=== PATIENT | female | born 2000 | race Caucasian/White ===

== ENCOUNTER → 2020-12-20 15:13 | Outpatient (REF) | payer OTHER, MEDICAID, SELFPAY ==
--- NOTE | 2020-12-20 | ECG_ITS ---
Test Reason : HX COVID Blood Pressure : / mmHG Vent. Rate : 076 BPM Atrial Rate : 076 BPM P-R Int : 128 ms QRS Dur : 090 ms QT Int : 394 ms P-R-T Axes : 024 032 041 degrees QTc Int : 443 ms Normal sinus rhythm with sinus arrhythmia Normal ECG When compared with ECG of 23-MAR-2018 14:51, No significant change was found Referred By: Deirdre Jimenes Electronically Signed By:MARLON GONZALES MD
== END ==
LOC: HO.CARD 15:13
PROVIDERS: PCP Pediatrics; Visit Provider Pediatrics
DX: Z86.16 Personal history of COVID-19 (principal)
CPT/HCPCS: 93005

== ENCOUNTER 2021-11-24 14:37 | Emergency (ER) | payer OTHER, MEDICAID, SELFPAY ==
--- NOTE | ~2021-11-24 | XR_ITS ---
EXAMINATION: XR CHEST CLINICAL INFORMATION: Chest pain and cough COMPARISON: Previous chest x-ray most recent March 2018 TECHNIQUE: Frontal view of the chest was obtained. FINDINGS: No significant abnormality is noted involving the heart, lungs, mediastinum, bony thorax or soft tissues. XR/XR chest 1V IMPRESSION: Unremarkable examination.
--- NOTE | 2021-11-24 14:46 | ECG_ITS ---
Test Reason : cp Blood Pressure : / mmHG Vent. Rate : 084 BPM Atrial Rate : 084 BPM P-R Int : 130 ms QRS Dur : 086 ms QT Int : 354 ms P-R-T Axes : 046 026 038 degrees QTc Int : 418 ms Normal sinus rhythm with sinus arrhythmia Normal ECG When compared with ECG of 20-DEC-2020 14:31, No significant change was found Referred By: Generic ED Physician Electronically Signed By:MARLON GONZALES MD
[2021-11-24 15:55] VITALS: BP 146/82; PULSE 76; RESP 20; TEMP 37.2; O2SAT 99; BMI 39.6
[2021-11-25 00:55] VITALS: BP 146/83; PULSE 86; RESP 16; TEMP 37.1; O2SAT 99
[2021-11-25 01:51] LABS: Basophils Percent Auto 0.3 % (0-2); Eosinophils Absolute Auto 0.3 X10*3/uL (0.0-0.4); Eosinophils Percent Auto 2.5 % (0-4); Hematocrit 41.6 % (37.0-47.0); Hemoglobin 14.1 g/dl (12.0-16.0); Imm Gran Abs Auto 0.03 X10*3/uL (0.00-0.03); Imm Gran Pct Auto 0.3 % (0.0-0.4); Lymphocytes Absolute Auto 2.9 X10*3/uL (1.2-4.9); Lymphocytes Percent Auto 25.3 % (20-40); MANUAL DIFF FLAG NO; Mean Corpuscular HGB Conc 33.9 g/dl (31.0-35.0); Mean Corpuscular Hemoglobin 27.4 pg (27.0-33.0); Mean Corpuscular Volume 80.9 fL (80.0-98.0); Mean Platelet Volume 8.8 fL (9.4-12.3); Monocytes Absolute Auto 0.9 X10*3/uL (0.1-1.2); Neutrophils Absolute Auto 7.3 x10*3/uL (2.0-8.3); Neutrophils Percent Auto 63.6 % (45-73); Platelet Count 365 X10*3/uL (160-400); Red Blood Count 5.14 X10*6/uL (4.20-5.50); Red Cell Distribution Width 12.7 % (11.0-16.0); White Blood Count 11.4 X10*3/uL (4.8-10.8)
[2021-11-25 02:06] LABS: Anion Gap 13 (12-20); Blood Urea Nitrogen 10 mg/dL (9-16); Calcium 9.6 mg/dL (8.4-10.2); Carbon Dioxide 25 mmol/L (22-29); Chloride 105 mmol/L (96-108); Estimated Glomerular Filt Rate > 60; Glucose Random 95 mg/dL (60-115); Sodium 139 mmol/L (135-145)
[2021-11-25 02:13] LABS: Troponin-I High Sensitivity < 3.5 ng/L (<3.5-17.0)
[2021-11-25 02:25] VITALS: BP 142/88; PULSE 105; RESP 16; TEMP 36.9; O2SAT 98
[2021-11-25 03:57] VITALS: BP 132/85; PULSE 84; RESP 16; TEMP 36.9; O2SAT 98
[2021-11-25 06:00] VITALS: BP 150/101; PULSE 96; RESP 16; TEMP 36.3; O2SAT 99
[2021-11-25] MEDS: Ketorolac Tromethamine 60 MG/2 ML VIAL IM (06:23)
--- NOTE | 2021-11-25 06:26 | ED.CHESTPAIN ---
HPI - Chest Pain General Chief Complaint: Chest Pain Stated Complaint: Chest pain/swollen lips Time Seen by Provider: 11/25/21 05:56 Source: patient Mode of arrival: ambulatory Limitations: no limitations History of Present Illness HPI narrative: 21-year-old female who presents emergency department for evaluation of rhinorrhea, sore throat, cough and chest pain. The patient states she has been sick for approximately 3-4 days. She states that she had a runny nose, sore throat and a nonproductive cough. She states that she was seen at an urgent care clinic and told that her lungs sounded bad. She was started on prednisone and albuterol but she did not take these medications. She states that her sore throat and cough have improved. She states yesterday morning just after midnight she woke up from sleep with chest pain. She points to her left anterior chest when asked to localize the pain. Describes the pain as a pressure pain which is worse with lying down flap improves with sitting up. She states the pain was 8/10. She states that over the last 3 days she has taken 6 Advil with only minimal relief of her symptoms. She denied fever, chills, shortness of breath, dyspnea on exertion, nausea, vomiting, diarrhea, myalgias or arthralgias. Related Data Allergies Allergy/AdvReac Type Severity Reaction Status Date / Time No Known Allergies Allergy Verified 11/24/21 15:57 Review of Systems Review of Systems: Yes all other systems are reviewed and are negative [facility] Past Medical History [facility] Narrative: Past medical history: None. Past surgical history: None. Social history: She denies tobacco, alcohol and drug use. Social History Social History Advance Directives: No Advance Directives Information Provided: Yes Physical Exam Vital Signs: Vital Signs: Last Vital Signs Temp 97.4 F 11/25/21 06:00 Pulse 96 11/25/21 06:00 Resp 16 11/25/21 06:00 BP 150/101 H 11/25/21 06:00 Pulse Ox 99 11/25/21 06:00 BMI result Body Mass Index 39.6 Const: General: cooperative and no acute distress Orientation/consciousness: oriented to person and oriented to place Limitations: no limitations HEENT: Head: Yes normal to inspection, Yes normocephalic and Yes atraumatic Ears: external ears normal General nose exam: Normal external nose present Face and sinus: Yes normal facial exam Mouth: Normal oral and palatal mucosa present Throat: Yes posterior oropharynx normal Eyes: General: appearance normal, both eyes and all related structures Pupils: Equal, round and reactive pupils present Neck: Neck: Yes normal visual inspection, Yes no lymphadenopathy, Yes trachea midline and Yes supple Chest: Chest palpation & inspection: normal inspection of the chest and tenderness sternum (Moderate) and costochondral junction (Bilateral, moderate) Resp: Effort & Inspection: normal respiratory effort and able to speak in complete sentences Auscultation: clear to auscultation bilaterally Cardio: Rate: regular rate Rhythm: regular rhythm Heart sounds: S1 normal heart sound present, S2 normal heart sound present and no murmurs GI: Inspection: Yes normal to inspection Palpation (GI): Soft to palpation, nontender and no guarding Auscultation: normal bowel sounds : General: Yes no CVA tenderness Back/Spine/Pelvis: Back: no CVA tenderness Skin: General skin exam: no rashes or lesions noted Neuro: General: oriented to person and oriented to place Cranial nerves: Yes CN's II-XII intact bilaterally and Yes Equal, round and reactive pupils present Cognition (Neuro): normal cognition Motor exam (neuro): 5/5 motor strength present throughout Extrem: General: Yes normal to inspection Psych: Appearance: grossly normal Speech and movement: Normal speech and movement present Affect: normal affect Attitude: cooperative Thought process: Normal thought process present Thought content: Normal thought content present Course Course Course Narrative: 21-year-old female who presents emergency department for evaluation of 3 days of upper respiratory symptoms including rhinorrhea, sore throat and cough and 1 day anterior chest pain which is worse with lying down flat. Patient's vital signs did reveal an elevated blood pressure of 146/82 otherwise were unremarkable. Examination did reveal tenderness palpation over her sternum and costochondral joints otherwise was unremarkable. Patient had a chest x-ray which was normal. Twelve EKG was unremarkable. Laboratory evaluation was normal. High sensitivity troponin I was undetectable. Patient's presentation is consistent with a viral URI and costochondritis, I do not think that she has pericarditis at this point. The patient was given Toradol 60 mg IM. She was advised to take Tylenol and ibuprofen for pain. She was given a work note. She was discharged home with printed and verbal instructions. MDM - Chest Pain Lab Data Result diagrams: 11/25/21 01:47 11/25/21 01:47 Labs: Lab Results 11/25/21 11/25/21 11/25/21 Range/Units 01:47 01:47 01:47 WBC 11.4 H (4.8-10.8) X10*3/uL RBC 5.14 (4.20-5.50) X10*6/uL Hgb 14.1 (12.0-16.0) g/dl Hct 41.6 (37.0-47.0) % MCV 80.9 (80.0-98.0) fL MCH 27.4 (27.0-33.0) pg MCHC 33.9 (31.0-35.0) g/dl RDW 12.7 (11.0-16.0) % Plt Count 365 (160-400) X10*3/uL MPV 8.8 L (9.4-12.3) fL Immature Gran % (Auto) 0.3 (0.0-0.4) % Neut % (Auto) 63.6 (45-73) % Lymph % (Auto) 25.3 (20-40) % [place] % (Auto) 8.0 (2-11) % Eos % (Auto) 2.5 (0-4) % Baso % (Auto) 0.3 (0-2) % Lymph # (Auto) 2.9 (1.2-4.9) X10*3/uL [place] # (Auto) 0.9 (0.1-1.2) X10*3/uL Eos # (Auto) 0.3 (0.0-0.4) X10*3/uL Baso # (Auto) 0.0 (0.0-0.2) X10*3/uL Abs Immat Gran (auto) 0.03 (0.00-0.03) X10*3/uL Absolute Neuts (auto) 7.3 (2.0-8.3) x10*3/uL Absolute Nucleated RBC 0.000 (0.0-0.012) X10*3/uL Nucleated RBC % (auto) 0.0 (0.0-0.2) /100WBC Sodium 139 (135-145) mmol/L Potassium 4.0 (3.3-5.1) mmol/L Chloride 105 (96-108) mmol/L Carbon Dioxide 25 (22-29) mmol/L Anion Gap 13 (12-20) BUN 10 (9-16) mg/dL Creatinine 0.75 (0.5-1.4) mg/dL Estim Creat Clear Calc 124.0 Estimated GFR > 60 Random Glucose 95 (60-115) mg/dL Calcium 9.6 (8.4-10.2) mg/dL Troponin I High Sens < 3.5 (<3.5-17.0) ng/L ABG Data Attestation: I personally reviewed and interpreted this ABG as follows: Interpretation: 1449: Normal sinus rhythm with a rate of 84, normal IN interval, normal QRS duration, normal QTC interval, no ST segment elevation, no ST segment depression, no IN depression, no T-wave abnormalities, no Q-waves, no PACs, no PVCs. Discharge Plan Discharge Clinical Impression: Viral URI, Acute costochondritis Patient Disposition: Home, Self-Care Instructions: Viral Syndrome (ED), Costochondritis (ED) Additional Instructions: Your laboratory evaluation was unremarkable. Your chest x-ray was normal. Your EKG was normal. Your symptoms are consistent with an upper respiratory viral infection and inflammation of your chest joints (costochondritis). You were treated with Toradol 60 mg IM. Take ibuprofen 200 mg pills, 3 pills every 6 hours as needed for pain. Take Tylenol (acetaminophen) 500 mg pills, 2 pills every 4 to 6 hours as needed for pain. Follow-up with your doctor in 2 days. Please return to the emergency department if your symptoms get worse or if you develop any symptoms that are concerning to you. Stand Alone Forms: Work/School Release Interventions: LWBS Worksheet Last Done: 11/25/21 01:12
== END 2021-11-25 06:56 | disposition home or self-care (01) ==
PROVIDERS: Emergency Provider Emergency Medicine Emergency Medical Services
DX: J06.9 Acute upper respiratory infection, unspecified (principal); M94.0 Chondrocostal junction syndrome [Tietze]
CPT/HCPCS: 36415; 71045; 80048; 84484; 85025; 93005; 96372; 99284; J1885

== ENCOUNTER 2022-08-04 12:14 | Emergency (ER) | payer MEDICAID, SELFPAY ==
--- NOTE | ~2022-08-04 | US_ITS ---
EXAMINATION: US ABDOMEN COMPLETE CLINICAL INFORMATION: Epigastric pain and nausea. COMPARISON: None TECHNIQUE: Real-time imaging of the abdominal viscera. FINDINGS: PANCREAS: Not well visualized due to bowel gas ABDOMINAL AORTA: The proximal, mid, and distal segments are normal in caliber. INFERIOR VENA CAVA: Visualized portions are normal. LIVER: Normal. The liver is normal in size. The liver contour is normal. Parenchymal echogenicity is normal. No focal hepatic lesion. There is no intrahepatic biliary duct dilatation seen. GALLBLADDER: Gallbladder is normal in size. The gallbladder wall appears thickened and echogenic. Gallbladder wall thickness measures 5 to 7 mm. No gallstones are seen. No pericholecystic fluid. COMMON BILE DUCT: Normal in caliber measuring 0.3 cm in diameter. RIGHT KIDNEY: Normal. No hydronephrosis. No renal calculi or focal parenchymal lesions. The kidney measures 9 cm in maximum dimension. LEFT KIDNEY: Normal. No hydronephrosis. No renal calculi or focal parenchymal lesions. The kidney measures 9 cm in maximum dimension. SPLEEN: Normal. The spleen measures 10 cm in maximum dimension. FREE FLUID: None. US/US abdomen complete IMPRESSION: Thickened echogenic gallbladder wall. The gallbladder is normal in size and no gallstones are seen. Appearance is questionable for acalculus cholecystitis. Follow-up HIDA scan should be considered if clinically indicated. Limited visualization of the pancreas.
[2022-08-04 12:34] VITALS: BP 136/84; PULSE 74; RESP 18; TEMP 36.7; O2SAT 99; BMI 38.7
--- NOTE | 2022-08-04 12:35 | ED.ABDPAIN ---
HPI - Abdominal Pain General Chief Complaint: Abdominal Pain Stated Complaint: Abdominal Pain x 3 Days Source: patient Mode of arrival: ambulatory Limitations: no limitations History of Present Illness HPI narrative: 21yoF c No Sig PMHx presenting to the ED c c/o of epigastric abd pain c associated nausea. Abdominal pain worsens after she eats. Denies any other symptoms complaints or concerns at this time. Denies any fevers, chills, sore throat, cough, radiation of the abdominal pain, flank pain, back pain, dysuria, hematuria, diarrhea constipation, rashes, recent travel or sick contacts or any other symptoms complaints or concerns at this time. MD elicited complaint: abdominal pain Onset (ago): day(s) (3) Pain Consistency: constant Location: epigastric Severity: moderate Quality: aching and sharp Radiation: none Migration to: no migration Exacerbating factors: eating Relieving factors: nothing Associated symptoms: nausea and diarrhea Related Data Allergies Allergy/AdvReac Type Severity Reaction Status Date / Time No Known Allergies Allergy Verified 11/24/21 15:57 Review of Systems Review of Systems Constitutional : No Fever, No Chills, No Night Sweats, No Fatigue, No Malaise Cardiovascular : No Chest Pain, No SOB Respiratory : No Cough, No Sputum, No Wheezing, No Dyspnea Gastrointestinal : + Nausea, No Vomiting, + Diarrhea, + abdominal Pain, No Hematochezia, No Melena Genitourinary : No irregular bleeding, No Dysuria, No Urinary Frequency, No Hematuria,No Urinary Incontinence, No Urgency, No Flank Pain Musculoskeletal : No joint pain, No Myalgias, No Joint Swelling Skin : No Skin Lesions, No rash Neuro : No Weakness, No Numbness, No Paresthesias, No Loss of Consciousness, No Dizziness, No Headache Heme/Lymph: No Lymphadenopathy Endocrine : No Temperature Intolerance Yes all other systems are reviewed and are negative PMFSH Past Medical History Attestation statement: The following information was validated with the patient. Source: old records reviewed and nursing notes reviewed Social History Social History Advance Directives: No Physical Exam ED Vital Signs: BMI result Body Mass Index 38.7 Vital signs have been reviewed and all within normal limits Appearance: Alert. Oriented X3. No acute distress. Head: Normal external exam. Normocephalic. Eyes: PERRLA. EOMI. Conjunctiva and sclera normal. Eyelids normal. ENT: Pharynx normal. Uvula midline. Moist mucous membranes. No trismus noted. No drooling noted. No muffled voice noted. Neck: Normal inspection. Neck supple. FROM. No adenopathy. No meningeal signs. CVS: Normal heart rate and rhythm. Heart sound normal. No murmurs noted. Pulses normal throughout. Respiratory: No respiratory distress. Painless inspiration. Breath sounds normal. No wheezes/rales/rhonchi noted. Chest nontender. No accessory muscle usage noted or decreased air movement noted. Abdomen: Soft and mild tenderness palpation to the epigastric area Nondistended. No guarding. No rigidity. Bowel sounds normal in all 4 quadrants. No distention noted. No organomegaly noted. No visible injury noted. No rebound tenderness. Negative Rovsing sign. Negative obturator's sign. Negative psoas sign. Negative Garcia sign. Back: No CVA tenderness. Full range of motion noted. Skin: Skin warm and dry. Normal skin color. Normal skin turgor. No rashes/lesions/lacerations noted. Extremities: Extremities exhibit normal range of motion. Extremities nontender. Neuro: Oriented X 3. No motor deficit. No sensory deficit. Reflexes normal. Normal steady gait. CN's II-XII intact bilaterally? Course Course Course Narrative: 12:36pm - 21yoF c No Sig PMHx presenting to the ED c c/o of epigastric abd pain c associated nausea. Abdominal pain worsens after she eats. Denies any other symptoms complaints or concerns at this time. Denies any fevers, chills, sore throat, cough, radiation of the abdominal pain, flank pain, back pain, dysuria, hematuria, diarrhea constipation, rashes, recent travel or sick contacts or any other symptoms complaints or concerns at this time. Vital signs are stable within normal limits. On exam patient is TTP of epigastric abdominal area. No CVA tenderness is noted. Plan: Labs, UA, test, abdominal ultrasound. Patient is stable she will be sent to the waiting room for further evaluation treatment the main ER. Reevaluation(s) Reevaluation #1: Labs obtained and all labs were within normal limits. UA within normal limits no evidence of UTI. Patient was negative for . Ultrasound of abdomen revealed IMPRESSION: Thickened echogenic gallbladder wall. The gallbladder is normal in size and no gallstones are seen. Appearance is questionable for acalculus cholecystitis. Follow-up HIDA scan should be considered if clinically indicated. Limited visualization of the pancreas. Although patient eloped. Medical Decision Making Lab Data MDM Lab Attestation statement: I reviewed the patient's lab results. Result Diagrams: 08/04/22 14:08/04/22 14: Labs: Lab Results 08/04/22 08/04/22 08/04/22 Range/Units 14:22 14:22 14:22 WBC 6.4 (4.8-10.8) X10*3/uL RBC 5.02 (4.20-5.50) X10*6/uL Hgb 13.8 (12.0-16.0) g/dl Hct 41.0 (37.0-47.0) % MCV 81.7 (80.0-98.0) fL MCH 27.5 (27.0-33.0) pg MCHC 33.7 (31.0-35.0) g/dl RDW 12.9 (11.0-16.0) % Plt Count 357 (160-400) X10*3/uL MPV 9.2 L (9.4-12.3) fL Immature Gran % (Auto) 0.2 (0.0-0.4) % Neut % (Auto) 64.8 (45-73) % Lymph % (Auto) 22.2 (20-40) % [place] % (Auto) 10.3 (2-11) % Eos % (Auto) 2.3 (0-4) % Baso % (Auto) 0.2 (0-2) % Lymph # (Auto) 1.4 (1.2-4.9) X10*3/uL [place] # (Auto) 0.7 (0.1-1.2) X10*3/uL Eos # (Auto) 0.2 (0.0-0.4) X10*3/uL Baso # (Auto) 0.0 (0.0-0.2) X10*3/uL Abs Immat Gran (auto) 0.01 (0.00-0.03) X10*3/uL Absolute Neuts (auto) 4.2 (2.0-8.3) x10*3/uL Absolute Nucleated RBC 0.000 (0.0-0.012) X10*3/uL Nucleated RBC % (auto) 0.0 (0.0-0.2) /100WBC PT 14.0 H (10.0-13.1) SEC INR 1.2 H (0.9-1.1) Sodium 138 (135-145) mmol/L Potassium 4.4 (3.3-5.1) mmol/L Chloride 106 (96-108) mmol/L Carbon Dioxide 26 (22-29) mmol/L Anion Gap 10 L (12-20) BUN 7 L (9-16) mg/dL Creatinine 0.78 (0.5-1.4) mg/dL Estim Creat Clear Calc 117.6 Estimated GFR > 60 Random Glucose 91 (60-115) mg/dL Calcium 9.4 (8.4-10.2) mg/dL Magnesium 1.9 (1.6-2.6) mg/dL Total Bilirubin 0.6 (0.0-1.0) mg/dL AST 12 (5-31) U/L ALT 11 (0-31) U/L Alkaline Phosphatase 75 (39-117) U/L Lactate Dehydrogenase 161 (122-220) U/L Total Protein 7.0 (6.5-8.0) g/dL Albumin 4.3 (3.5-5.0) g/dL Lipase 13 (8-78) U/L Beta HCG, Quant < 2 mIU/mL Urine Color Urine Appearance Urine pH (5.0-9.0) Ur Specific [place] (1.005-1.025) Urine Protein (Neg-Trace) mg/dL Urine Glucose (UA) (Negative) mg/dL Urine Ketones (Negative) mg/dL Urine Blood (Negative) Urine Nitrite (Negative) Ur Leukocyte Esterase (Negative) 08/04/22 Range/Units 14:25 WBC (4.8-10.8) X10*3/uL RBC (4.20-5.50) X10*6/uL Hgb (12.0-16.0) g/dl Hct (37.0-47.0) % MCV (80.0-98.0) fL MCH (27.0-33.0) pg MCHC (31.0-35.0) g/dl RDW (11.0-16.0) % Plt Count (160-400) X10*3/uL MPV (9.4-12.3) fL Immature Gran % (Auto) (0.0-0.4) % Neut % (Auto) (45-73) % Lymph % (Auto) (20-40) % [place] % (Auto) (2-11) % Eos % (Auto) (0-4) % Baso % (Auto) (0-2) % Lymph # (Auto) (1.2-4.9) X10*3/uL [place] # (Auto) (0.1-1.2) X10*3/uL Eos # (Auto) (0.0-0.4) X10*3/uL Baso # (Auto) (0.0-0.2) X10*3/uL Abs Immat Gran (auto) (0.00-0.03) X10*3/uL Absolute Neuts (auto) (2.0-8.3) x10*3/uL Absolute Nucleated RBC (0.0-0.012) X10*3/uL Nucleated RBC % (auto) (0.0-0.2) /100WBC PT (10.0-13.1) SEC INR (0.9-1.1) Sodium (135-145) mmol/L Potassium (3.3-5.1) mmol/L Chloride (96-108) mmol/L Carbon Dioxide (22-29) mmol/L Anion Gap (12-20) BUN (9-16) mg/dL Creatinine (0.5-1.4) mg/dL Estim Creat Clear Calc Estimated GFR Random Glucose (60-115) mg/dL Calcium (8.4-10.2) mg/dL Magnesium (1.6-2.6) mg/dL Total Bilirubin (0.0-1.0) mg/dL AST (5-31) U/L ALT (0-31) U/L Alkaline Phosphatase (39-117) U/L Lactate Dehydrogenase (122-220) U/L Total Protein (6.5-8.0) g/dL Albumin (3.5-5.0) g/dL Lipase (8-78) U/L Beta HCG, Quant mIU/mL Urine Color Yellow Urine Appearance Clear Urine pH 5.5 (5.0-9.0) Ur Specific [place] 1.010 (1.005-1.025) Urine Protein Negative (Neg-Trace) mg/dL Urine Glucose (UA) Negative (Negative) mg/dL Urine Ketones Negative (Negative) mg/dL Urine Blood Negative (Negative) Urine Nitrite Negative (Negative) Ur Leukocyte Esterase Negative (Negative) Discharge Plan Discharge Clinical Impression: Abdominal pain Patient Disposition: [place] Discharge Date/Time: 08/04/22 21:34
--- OUTSIDE RECORDS SUMMARY | 2022-08-04 14:18 | XMS_ITS | Continuity of Care Document ---
:1999 Author Organization [facility] Address [address] [place] [id number]- Care Team Providers Name Role Phone Yudy LEZAMA, Deirdre Isaac Primary Care Physician Encounter [facility] ACCT R [id number] Date(s): 03/09/22 - 04/08/22 [facility] [place] [employer] [address] [id number] Attending Physician: Rashawn Yuen Admitting Physician: Rashawn Yuen Referring Physician: Rashawn Yuen Allergies, Adverse Reactions, Alerts No Known Medication Allergies Social History Social History Type Response Smoking Status Never smoker entered on: 05/28/15 Sex
--- OUTSIDE RECORDS SUMMARY | 2022-08-04 14:18 | XMS_ITS | Continuity of Care Document ---
:1999 Author Organization [facility] Address [address] [place] [id number]- Care Team Providers Name Role Phone Yudy LEZAMA, Deirdre Isaac Primary Care Physician Encounter [facility] Date(s): 10/07/21 - 11/06/21 [facility] [employer] [address] [id number] Allergies, Adverse Reactions, Alerts No Known Medication Allergies Social History Social History Type Response Smoking Status Never smoker entered on: 05/28/15 Sex
--- OUTSIDE RECORDS SUMMARY | 2022-08-04 14:18 | XMS_ITS | Continuity of Care Document ---
:1999 Author Organization [facility] [employer] Address [address] [place] [id number]- Care Team Providers Name Role Phone Yudy LEZAMA, Deirdre Isaac Primary Care Physician Encounter [facility] Date(s): 10/07/21 - 04/08/22 [facility] [employer] [address] [id number] Attending Physician: Not on Staff, Attending MD Referring Physician: Samia Martin CNM Allergies, Adverse Reactions, Alerts No Known Medication Allergies Social History Social History Type Response Smoking Status Never smoker entered on: 05/28/15 Sex
--- OUTSIDE RECORDS SUMMARY | 2022-08-04 14:19 | XMS_ITS | Continuity of Care Document ---
:1999 Author Organization [facility] Address [address] [place] [phone] Care Team Providers Name Role Phone Yudy LEZAMA, Deirdre Isaac Primary Care Physician Encounter [facility] Date(s): 09/10/21 - 10/10/21 [facility] [address] [place] [address] Allergies, Adverse Reactions, Alerts No Known Medication Allergies Social History Social History Type Response Smoking Status Never smoker entered on: 05/28/15 Sex
--- OUTSIDE RECORDS SUMMARY | 2022-08-04 14:19 | XMS_ITS | Continuity of Care Document ---
:1999 Author Organization [facility] Address [address] [place] [id number]- Care Team Providers Name Role Phone Yudy LEZAMA, Deirdre Isaac Primary Care Physician Encounter [facility] Date(s): 09/10/21 - 10/10/21 [facility] [address] [place] [id number] Allergies, Adverse Reactions, Alerts No Known Medication Allergies Social History Social History Type Response Smoking Status Never smoker entered on: 05/28/15 Sex
--- OUTSIDE RECORDS SUMMARY | 2022-08-04 14:19 | XMS_ITS | Continuity of Care Document ---
:[address] [facility] Address [address] [place] [address]- Care Team Providers Name Role Phone Yudy LEZAMA, Deirdre Isaac Primary Care Physician Encounter [facility] Date(s): 08/31/21 - 09/30/21 [facility] [address] [place], [place] [address] Allergies, Adverse Reactions, Alerts No Known Medication Allergies Social History Social History Type Response Smoking Status Never smoker entered on: 05/28/15 Sex
--- OUTSIDE RECORDS SUMMARY | 2022-08-04 14:19 | XMS_ITS | Continuity of Care Document ---
:1999 Author Organization [facility] Address Unavailable , Care Team Providers Name Role Phone Yudy LEZAMA, Deirdre Isaac Primary Care Physician Encounter [facility] Date(s): 11/27/21 - 12/27/21 [facility] Allergies, Adverse Reactions, Alerts No Known Medication Allergies Social History Social History Type Response Smoking Status Never smoker entered on: 05/28/15 Sex
--- OUTSIDE RECORDS SUMMARY | 2022-08-04 14:19 | XMS_ITS | Continuity of Care Document ---
:1999 Author Organization [facility] Address Unavailable , Care Team Providers Name Role Phone Yudy LEZAMA, Deirdre Isaac Primary Care Physician Encounter [facility] Date(s): 11/25/21 - 12/25/21 [facility] Allergies, Adverse Reactions, Alerts No Known Medication Allergies Social History Social History Type Response Smoking Status Never smoker entered on: 05/28/15 Sex
[2022-08-04 14:33] LABS: MANUAL DIFF FLAG NO
[2022-08-04 14:37] LABS: Basophils Percent Auto 0.2 % (0-2); Eosinophils Absolute Auto 0.2 X10*3/uL (0.0-0.4); Eosinophils Percent Auto 2.3 % (0-4); Hemoglobin 13.8 g/dl (12.0-16.0); Imm Gran Abs Auto 0.01 X10*3/uL (0.00-0.03); Imm Gran Pct Auto 0.2 % (0.0-0.4); Lymphocytes Absolute Auto 1.4 X10*3/uL (1.2-4.9); Lymphocytes Percent Auto 22.2 % (20-40); Mean Corpuscular HGB Conc 33.7 g/dl (31.0-35.0); Mean Corpuscular Hemoglobin 27.5 pg (27.0-33.0); Mean Corpuscular Volume 81.7 fL (80.0-98.0); Mean Platelet Volume 9.2 fL (9.4-12.3); Monocytes Absolute Auto 0.7 X10*3/uL (0.1-1.2); Monocytes Percent Auto 10.3 % (2-11); Neutrophils Absolute Auto 4.2 x10*3/uL (2.0-8.3); Neutrophils Percent Auto 64.8 % (45-73); Platelet Count 357 X10*3/uL (160-400); Red Blood Count 5.02 X10*6/uL (4.20-5.50); Red Cell Distribution Width 12.9 % (11.0-16.0); White Blood Count 6.4 X10*3/uL (4.8-10.8)
[2022-08-04 14:41] LABS: Appearance Urine Clear; Color Urine Yellow; Glucose Urine UA Negative (Negative); Leukocyte Esterase Urine Negative (Negative); Nitrite Urine Negative (Negative); PH 5.5 (5.0-9.0); Urine Blood Negative (Negative); Urine Ketones Negative (Negative); Urine Protein Negative (Neg-Trace)
[2022-08-04 14:57] LABS: INTERNATIONAL NORM RATIO 1.2 (0.9-1.1)
[2022-08-04 15:01] LABS: Alanine Aminotransferase 11 U/L (0-31); Albumin Level 4.3 g/dL (3.5-5.0); Alkaline Phosphatase 75 U/L (39-117); Anion Gap 10 (12-20); Aspartate Amino Transferase 12 U/L (5-31); Bilirubin Total 0.6 mg/dL (0.0-1.0); Blood Urea Nitrogen 7 mg/dL (9-16); Calcium 9.4 mg/dL (8.4-10.2); Carbon Dioxide 26 mmol/L (22-29); Chloride 106 mmol/L (96-108); Glucose Random 91 mg/dL (60-115); HCG Quantitative < 2 mIU/mL; Lactate Dehydrogenase 161 U/L (122-220); Lipase 13 U/L (8-78); Magnesium 1.9 mg/dL (1.6-2.6); Potassium 4.4 mmol/L (3.3-5.1); Sodium 138 mmol/L (135-145)
[2022-08-04 15:59] LABS: Creatinine Clr Calc Pharmacy 117.6; Estimated Glomerular Filt Rate > 60
== END 2022-08-04 21:34 | disposition left against medical advice (07) ==
PROVIDERS: Physician Assistant Medical; Emergency Provider Emergency Medicine
DX: R10.13 Epigastric pain (principal); R11.2 Nausea with vomiting, unspecified; R19.7 Diarrhea, unspecified; Z79.899 Other long term (current) drug therapy
CPT/HCPCS: 36415; 76700; 80053; 81003; 83615; 83690; 83735; 84702; 85025; 85610; 99282; 99284

== ENCOUNTER 2023-11-23 19:16 | Emergency (ER) | payer BC, SELFPAY ==
[2023-11-23 19:40] VITALS: BP 119/81; PULSE 110; RESP 18; TEMP 37.6; O2SAT 100; BMI 36.8
--- NOTE | 2023-11-23 19:41 | ED.NAVMDI ---
HPI - Nausea/Vomiting/Diarrhea General Chief complaint: General Medical Stated complaint: Flu like Symptoms/Dizziness Time Seen by Provider: 11/23/23 19:44 Source: patient Mode of arrival: ambulatory Limitations: no limitations History of Present Illness HPI Narrative: 23 year old female presenting today for evaluation of all over body aches, chills, and general malaise since yesterday. Sick contact includes sister who was diagnosed with flu yesterday. Denies sore throat, fevers, no cough. Denies vomiting, diarrhea. Reports occasional diffuse abdominal pain and shortness of breath. MD elicited complaint: abdominal pain Onset (ago): hour(s) (24 hrs) Associated nausea: No Associated abdominal pain: No Location of pain: none Pain scale (0-10): 8 Quality: aching Exacerbating factors: movement Relieving factors: rest Related Data Allergies Allergy/AdvReac Type Severity Reaction Status Date / Time No Known Allergies Allergy Verified 11/24/21 15:57 Review of Systems Review of Systems: Yes all other systems are reviewed and are negative Gastrointestinal: Gastrointestinal: Denies nausea PMFSH Social History Social History Smoked in Last 30 Days: No Use of substances other than those prescribed or required for medical reasons: No Patient : No Physical Exam Vital Signs: Vital Signs: Last Vital Signs Temp 99.7 F 11/23/23 19:40 Pulse 110 H 11/23/23 19:40 Resp 18 11/23/23 19:40 BP 119/81 11/23/23 19:40 Pulse Ox 100 11/23/23 19:40 O2 Del Method Room Air 11/23/23 19:40 BMI result Body Mass Index 36.8 Appearance: Alert. Oriented X3. No acute distress. ENT: Pharynx normal. No tonsillar swelling or exudate. No erythema of the oropharynx, Neck: Normal inspection. Neck supple. No lymphadenopaathy. CVS: Normal heart rate and rhythm. Pulses normal. Respiratory: No respiratory distress. Breath sounds normal. Abdomen: Soft and nontender. Skin: Skin warm and dry. Normal skin color. Normal skin turgor. No rashes. Neuro/psych: Oriented X 3. Course Course Course Narrative: Gladys is a 23 year old female presenting today for evaluation of all over body aches, chills, and general malaise since yesterday. Sick contact includes sister who was diagnosed with flu yesterday. Denies sore throat, fevers, no cough. Medications Administered Discontinued Medications Generic Name Dose Route Start Last Admin Trade Name Conrad PRN Reason Stop Dose Admin Ibuprofen 600 mg 11/23/23 19:45 11/23/23 19:47 Ibuprofen 600 Mg Tablet PO 11/23/23 19:46 600 mg ONCE ONE Administration Medical Decision Making Medical Decision Making MDM Narrative: 23 year old female presenting today for evaluation of body aches and chills since yesterday. Has sick contact of sister who was diagnosed with flu yesterday. Vital signs are stable on examination. Onset of symptoms < 48 hours ago, discussed potential tamiflu use, patient declines. Recommended use of OTC theraflu, ibuprofen, and acetaminophen. Comfortable to discharge home. Patient is agreeable with plan and questions/concerns were addressed. Differential Diagnosis Differential Diagnoses: The differential diagnosis associated with the presentation includes flu, COVID, RSV, upper respiratory infection, pneumonia, bronchitis External Record Review External record reviewed: Outpatient record, Prior outpatient labs and Prior outpatient radiology Tests considered The following testing was considered but not selected: cxr considered, viral testing considered Prescription Management I considered prescription management with: Antiviral Critical Care Time Critical Care Time Critical Care Time: No Discharge Plan Discharge Clinical Impression: Influenza A Patient Disposition: Home, Self-Care Instructions: Influenza (DC) Additional Instructions: Your symptoms are due to influenza Rest. Drink plenty of fluids. Do not go out in public while you are not feeling. Take over the counter cold/flu medications as needed for your symptoms. Take Tylenol and/or Motrin as needed for fevers and body aches. Follow up with your doctor as needed If you shortness of breath worsens, if you develop difficulty breathing or any other concerning symptom come back to the ER for further evaluation. Stand Alone Forms: Work/School Release
[2023-11-23] MEDS: Ibuprofen 600 MG TABLET PO (19:47)
[2023-11-23 19:52] VITALS: BP 119/81; PULSE 110; RESP 18; TEMP 37.6; O2SAT 100
== END 2023-11-23 20:30 | disposition home or self-care (01) ==
LOC: HO.ED 21:05
PROVIDERS: Emergency Provider Emergency Medicine Emergency Medical Services
DX: J10.1 Influenza due to other identified influenza virus with other respiratory manifestations (principal)
CPT/HCPCS: 99283

== ENCOUNTER → 2024-12-22 14:52 | Outpatient (BNVA) | payer MEDICARE, SELFPAY | DX: E66.01 Morbid (severe) obesity due to excess calories (principal); D57.3 Sickle-cell trait; F41.9 Anxiety disorder, unspecified; Z68.41 Body mass index [BMI] 40.0-44.9, adult | CPT/HCPCS: 96127; 99202 ==

== ENCOUNTER 2025-02-07 13:57 | Outpatient (REF) | payer MEDICARE, SELFPAY ==
[2025-02-07 14:10] LABS: MANUAL DIFF FLAG NO
[2025-02-07 14:52] LABS: Basophils Percent Auto 0.3 % (0-2); Eosinophils Absolute Auto 0.1 X10*3/uL (0.0-0.4); Eosinophils Percent Auto 1.4 % (0-4); Hematocrit 39.8 % (37.0-47.0); Hemoglobin 13.8 g/dl (12.0-16.0); Imm Gran Abs Auto 0.02 X10*3/uL (0.00-0.03); Imm Gran Pct Auto 0.2 % (0.0-0.4); Lymphocytes Absolute Auto 1.8 X10*3/uL (1.2-4.9); Lymphocytes Percent Auto 20.3 % (20-40); Mean Corpuscular HGB Conc 34.7 g/dl (31.0-35.0); Mean Corpuscular Hemoglobin 27.8 pg (27.0-33.0); Mean Corpuscular Volume 80.1 fL (80.0-98.0); Mean Platelet Volume 9.3 fL (9.4-12.3); Monocytes Absolute Auto 0.8 X10*3/uL (0.1-1.2); Neutrophils Percent Auto 68.8 % (45-73); Platelet Count 423 X10*3/uL (160-400); Red Blood Count 4.97 X10*6/uL (4.20-5.50); Red Cell Distribution Width 13.1 % (11.0-16.0); White Blood Count 8.8 X10*3/uL (4.8-10.8)
[2025-02-07 15:31] LABS: Alanine Aminotransferase 21 U/L (0-31); Albumin Level 4.7 g/dL (3.5-5.0); Alkaline Phosphatase 76 U/L (39-117); Anion Gap 11 (12-20); Aspartate Amino Transferase 20 U/L (5-31); Bilirubin Total 0.6 mg/dL (0.0-1.0); Blood Urea Nitrogen 9 mg/dL (9-16); Carbon Dioxide 26 mmol/L (22-29); Chloride 108 mmol/L (96-108); Cholesterol 208 mg/dL (<200); Estimated Glomerular Filt Rate > 60; Glucose Random 89 mg/dL (60-115); HDL Cholesterol 55 mg/dL (>40); LDL Cholesterol Calculated 128 mg/dL (<100); Potassium 3.8 mmol/L (3.3-5.1); Sodium 141 mmol/L (135-145); Total Protein 7.6 g/dL (6.5-8.0); Triglycerides 127 mg/dL (<150)
[2025-02-07 15:49] LABS: Free T4 (Free Thyroxine) 1.13 ng/dL (0.71-1.85); TSH reflex Free T4 2.95 uIU/mL (0.32-4.0); Vitamin D 25-OH Total 20.7 ng/mL (>30)
[2025-02-07 16:01] LABS: Folate > 20.0 ng/mL (> or = 4.0); Vitamin B12 314 pg/mL (200-900)
[2025-02-09 11:04] LABS: Anti Nuclear Antibody Screen NEGATIVE (NEGATIVE)
== END 2025-02-07 13:58 | disposition home or self-care (01) ==
LOC: HO.LAB 13:57
DX: Z00.00 Encounter for general adult medical examination without abnormal findings (principal); Z13.220 Encounter for screening for lipoid disorders; F41.9 Anxiety disorder, unspecified
CPT/HCPCS: 36415; 80053; 80061; 82306; 82607; 82746; 84439; 84443; 85025; 86038

== ENCOUNTER 2025-03-26 14:59 | Outpatient (AMB) | payer MEDICARE, SELFPAY ==
--- OUTSIDE RECORDS SUMMARY | 2025-03-26 15:03 | XMS_ITS | Encounter Summary ---
Author Organization [facility] Address [address] [place] [id number] Phone Care Team Providers Care Cupola Operator Name Role Phone Deirdre Jimenes MD Primary Care Provider [phone] Encounter Details Date Type Department Care Team (Late st Contact Info) Description 10/14/2016 Documentation [facility] Family Medicine [address] [place] [address] Family Medicine, Physician [address], [place] [phone] Social History Tobacco Use Types Packs/Day Years Used Date Smoking Tobacco: Never Assessed Comments Unknown Sex and Gender Information Value Date Recorded Sex Assigned at Not on file Legal Sex Female 5:11 PM EDT Gender Identity Not on file Sexual Orientation Not on file documented as of this encounter Plan of Treatment Not on file documented as of this encounter Visit Diagnoses Not on filedocumented in this encounter Care Teams Cupola Operator Relationship Specialty Start Date End Date Deirdre Jimenes MD [address] [place] [address] [place] [id number] PCP - General 04/02/17 09/10/22 documented as of this encounter
--- NOTE | 2025-03-26 15:04 | MHC.PC.OV ---
Vital Signs 03/26/25 15:05 Height 5 ft 1 in Weight 224 lb 8 oz BMI 42.4 BP 116/72 Blood Pressure Location Lt brachial Position Sitting Pulse 69 Pulse Source Pulse Oximeter Pulse Oximetry (%) 98 Oxygen Delivery Method Room Air Intake Visit Reasons: Annual Exam /blood work f/u Termite Technician Required: No Accompanied by: Self / Same As Patient Allergies No Known Allergies Allergy (Verified 03/26/25 15:14) Medication List - Last Reconciled 03/26/25 by Sushila Kovacs PA-C No Known Home Meds Tobacco use date assessed: 03/26/25 Dental Screening Dental Screen Date: 03/26/25 Did you have a dental visit in the last 12 months?: Yes Did you have a dental problem in the last 6 months where you did not have access to dental care?: No Was dental information given to patient?: Patient has dentist HPI Annual Exam /blood work f/u HPI Details 24-year-old female with past medical history of sickle cell trait, morbid obesity, anxiety last seen 12/2024 coming in for annual exam. The patient is a 24-year-old female presenting with an annual wellness visit and concerns about arm pain and weight management. The patient reports experiencing intense arm pain, often triggered by alcohol consumption or exposure to cold, followed by warmth. The pain is described as severe, sometimes leading to stiffness and lasting for hours. The patient has a family history of lupus, but her SUKHJINDER test was negative. The patient has a BMI of 42.4 and has struggled with weight management, losing only 2 pounds recently despite efforts. She is considering weight loss medications and has discussed options such as phentermine and injectable medications like Wegovy. The patient experiences cramping pain when holding urine and urgency to void, with symptoms coming and going. She plans to provide a urine sample for further evaluation. eye doctor: yearly pap smears: advised to reach out to consulting practice manager vaccines: Td UTD PFSH Family History Mother Clotting disorder Other Lupus (systemic lupus erythematosus) Social History Housing: House Patient Tobacco Use Status: Never used Tobacco e-Cigarette/Vaping Use: Never Used service: No Current occupational status: employed Cognitive needs: No Hearing needs: No Vision needs: No Questionnaire PHQ-9 Over the last 2 weeks, how often have you been bothered by any of the following problems? 1. Little interest or pleasure in doing things: not at all 2. Feeling down, depressed, or hopeless: not at all 3. Trouble falling or staying asleep, or sleeping too much: not at all 4. Feeling tired or having little energy: more than half the days 5. Poor appetite or overeating: several days 6. Feeling bad about yourself - or that you are a failure or have let yourself or your family down: not at all 7. Trouble concentrating on things, such as reading the newspaper or watching television: not at all 8. Moving or speaking so slowly that other people could have noticed. Or the opposite - being so fidgety or restless that you have been moving around a lot more than usual: not at all 9. Thoughts that you would be better off or of hurting yourself in some way: not at all Total score: 3 Depression Screening Interpretation: Negative Depression Screening Done: Yes 90644 - PHQ-9 Billing: Yes Source: Developed by Drs. Adam Farmer, Yue Strong, Renato Quintero and colleagues, with an educational emma from [employer]. Thrive Questionnaire Date Thrive assessed: 03/26/25 I am a: Patient What is your living situation today?: I have a steady place to live Within the past 12 months, did the food you bought not last and you didn't have the money to get more?: Never true Within the past 12 months, did you worry whether your food would run out before you got money to buy more?: Never true Do you have trouble paying for medicines?: No Do you have trouble getting transportation to medical appointments?: No Do you have trouble paying your heating and electricity bill?: No Do you have trouble taking care of your child, family member or friend?: No Do you have trouble with day-to-day activities such as bathing, preparing meals, shopping, managing finances, etc.?: No Are you currently unemployed and looking for a job?: No Are you interested in more education?: Yes Please select the resources that you would like help with: None Currently or been in a relationship where the following occur: No concerns reported THRIVE Score: 0 JAYDEN-7 AMB Questionnaire JAYDEN-7 Date JAYDEN - 7 assessed: 03/26/25 Source: Developed by Drs. Adam Farmer, Yue Strong, Renato Quintero and colleagues, with an educational emma from [employer]. Review of Systems Const Denies body aches, Denies fatigue, Denies fever(s), Denies frequent falls, Denies headache(s) and Denies weakness Eyes Reports no additional complaints and Denies change in vision ENT Denies dysphagia, Denies dizziness, Denies facial pain, Denies headache(s), Denies nasal congestion and Denies odynophagia Card Denies chest pain, Denies syncope, Denies irregular heart rhythm, Denies leg edema, Denies lightheadedness and Denies dyspnea Resp Denies cough and Denies dyspnea GI Denies constipation, Denies dysphagia, Denies dyspepsia, Denies diarrhea, Denies nausea, Denies odynophagia and Denies vomiting Denies urinary frequency, Denies dysuria, Denies urinary hesitancy and Denies urinary urgency Musc Denies back pain and Denies myalgias Skin/Breast Reports system reviewed and no additional complaints, except as documented Neuro Denies dizziness, Denies syncope, Denies frequent falls, Denies headache(s) and Denies weakness Psych Reports no additional complaints Endo Denies fatigue Physical exam (Primary Care) Vital Signs: Last Vital Signs Pulse 69 03/26/25 15:05 BP 116/72 03/26/25 15:05 Pulse Ox 98 03/26/25 15:05 Oxygen Delivery Method Room Air 03/26/25 15:05 BMI result Body Mass Index 42.4 Tobacco/Smoking Status: Tobacco use Status Tobacco use date assessed 03/26/25 03/26/25 15:11 Patient Tobacco Use Status Never used Tobacco 03/26/25 15:11 e-Cigarette/Vaping Use Never Used 03/26/25 15:11 PHQ-9: PHQ-9 Score PHQ-9: Total score 3 03/26/25 16:54 Depression Screening Interpretation: Negative Thrive Assessment: Date of Thrive Assessment Date Thrive assessed 03/26/25 03/26/25 15:11 Currently or been in a relationship where the following occur: No concerns reported Const General: cooperative, healthy appearing, comfortable and no acute distress Orientation/consciousness: patient oriented x3 HENMT Head: Yes normocephalic Ears: hearing grossly normal bilaterally, external ears normal, TM's normal bilaterally and EAC's normal General nose exam: Normal external nose present Face and sinus: Yes normal facial exam and Yes sinuses nontender Mouth: Normal oral and palatal mucosa present and tongue normal Throat: Yes posterior oropharynx normal Eyes General: appearance normal, both eyes and all related structures Conjunctivae: conjunctivae normal Pupils: Equal, round and reactive pupils present EOM: EOMs intact bilaterally and No Nystagmus present Neck Neck: Yes normal visual inspection, Yes full ROM and Yes no lymphadenopathy Chest Chest palpation & inspection: normal inspection of the chest Resp Effort & Inspection: normal respiratory effort Auscultation: clear to auscultation bilaterally, no crackles, no rales, no rhonchi, no wheezes and breath sounds present Cardio Rate: regular rate Rhythm: regular rhythm Peripheral pulses: radial pulses present and dorsalis pedis present GI Inspection: Yes normal to inspection and No Abdominal wall edema Palpation (GI): Soft to palpation, not firm and nontender Auscultation: normal bowel sounds Rectal Exam - Female: deferred General: Yes no CVA tenderness Back/Spine/Pelvis Back: no CVA tenderness Skin General skin exam: no rashes or lesions noted Neuro General: patient oriented x3 Cranial nerves: Yes Equal, round and reactive pupils present, Yes Midline tongue present, Yes Ability to bilaterally elevate shoulders present and No Nystagmus present Gait exam (Neuro): Normal gait present Extrem General: Yes normal to inspection, Yes full ROM, No no pedal edema and No edema Psych Speech and movement: Normal speech and movement present Affect: normal affect Insight: Good insight present (Psych) Judgement: Good judgement present (Psych) Coding Level of Care Code Est Pt Prev Care 18-39y(31387) Diagnoses Annual physical exam Z00.00 Anxiety F41.9 Morbid obesity with BMI of 40.0-44.9, adult E66.01; Z68.41 Sickle cell trait D57.3 Cervical cancer screening Z12.4 Body aches R52 Urinary urgency R39.15 Additional Codes PHQ-9 - 88209 - PHQ-9 Billing: Yes ([id number]) Assessment & Plan Assessment & Plan (1) Annual physical exam: Code(s): Z00.00 - Encounter for general adult medical examination without abnormal findings Category: Medical Plan: Patient is overdue for Pap smear screening and I did remind the patient once again today to schedule with Gynecology. Blood work is up-to-date and has been reviewed with the patient today. Healthy diet and regular exercise is encouraged. (2) Anxiety: Code(s): F41.9 - Anxiety disorder, unspecified Category: Medical Plan: Reporting intermittent anxiety attributed to school. Referral was placed to counseling at her last visit. Declining medication at this time. (3) Morbid obesity with BMI of 40.0-44.9, adult: Code(s): E66.01 - Morbid (severe) obesity due to excess calories; Z68.41 - Body mass index [BMI] 40.0-44.9, adult Category: Medical Plan: Healthy diet and regular exercise is encouraged. Referral was placed to diet and nutrition at last visit and she is currently following with [facility] endocrinology. Patient was counseled today on the risks and benefits of GLP-1 injections as well as the dosing schedule. She has no family history or personal history of thyroid disease and no gallbladder disease. Discussed with the patient the potential GI side effects of this medication. Plan to have repeat blood work after one month of therapy to monitor kidney and liver function before increasing the dose of this medication. Follow up in 2 months for a weight check. (4) Sickle cell trait: Code(s): D57.3 - Sickle-cell trait Category: Medical Plan: Sickle cell trait present no further workup at this time (5) Cervical cancer screening: Code(s): Z12.4 - Encounter for screening for malignant neoplasm of cervix Category: Medical Plan: Referral placed to gynecology at last visit. Reminded patient to reach out to make an appointment (6) Body aches: Code(s): R52 - Pain, unspecified Category: Medical Plan: Patient having bilateral forearm pain that is severe in burning in nature that happens approximately once a year. She does not identify any inciting events but thinks it may be related to excessive alcohol consumption. We did order for an SUKHJINDER has she is having only history of lupus and her family members have similar symptoms. SUKHJINDER was negative plan to order for inflammatory markers and advised patient to keep a log of her symptoms. (7) Urinary urgency: Code(s): R39.15 - Urgency of urination Category: Medical Plan: Ordered for urinalysis in the office which was negative. Consider additional imaging if symptoms persist Plan The patient will be monitored for arm pain, with instructions to seek medical attention during an episode to facilitate examination and diagnosis. A urine sample will be collected to investigate urinary urgency and cramping pain, with further evaluation based on results. For weight management, the patient is considering pharmacological options, including injectable medications, and will continue working with a pelletizer tender to adjust dietary habits. This note was constructed using voice recognition software. While every effort has been made to ensure accuracy and local superintendent, still areas may have been included sometimes these areas may affect the content or meeting of the given symptoms. Total time spent caring for the patient today was 30 minutes. This includes time spent before the visit reviewing the chart, time spent during the visit, and time spent after the visit and documentation. Patient was informed and verbally consented to the use of an ambient scribe for clinic note documentation during this visit. Orders: Orders C Reactive Protein 03/26/25 R52 - Pain, unspecified Hemoglobin A1c 03/26/25 Z13.1 - Encounter for screening for diabetes mellitus Erythrocyte Sedimentation Rate 03/26/25 R52 - Pain, unspecified AMB Urinalysis Dipstick 03/26/25 Z13.9 - Encounter for screening, unspecified Medications: New tirzepatide (weight loss) (Zepbound) for 4 weeks 2.5 mg (0.5 mL) subcut QWEEK 2 mL 0RF
[2025-03-26 15:05] VITALS: BP 116/72; PULSE 69; O2SAT 98; BMI 42.4
== END 2025-03-26 16:10 | disposition home or self-care (01) ==
LOC: HO.HMCH 15:00
DX: Z00.00 Encounter for general adult medical examination without abnormal findings (principal); F41.9 Anxiety disorder, unspecified; E66.01 Morbid (severe) obesity due to excess calories; Z68.41 Body mass index [BMI] 40.0-44.9, adult; D57.3 Sickle-cell trait; Z12.4 Encounter for screening for malignant neoplasm of cervix; R52 Pain, unspecified; R39.15 Urgency of urination

== ENCOUNTER → 2025-03-26 14:59 | Outpatient (BNVA) | payer MEDICARE, SELFPAY | DX: Z00.00 Encounter for general adult medical examination without abnormal findings (principal); F41.9 Anxiety disorder, unspecified; E66.01 Morbid (severe) obesity due to excess calories; Z68.41 Body mass index [BMI] 40.0-44.9, adult; D57.3 Sickle-cell trait; M79.632 Pain in left forearm; M79.631 Pain in right forearm; R39.15 Urgency of urination; Z13.31 Encounter for screening for depression | CPT/HCPCS: 96127; 99395 ==

== ENCOUNTER 2025-04-01 22:17 | Emergency (ER) | payer BC, SELFPAY ==
--- NOTE | ~2025-04-01 | XR_ITS ---
CLINICAL HISTORY: fall pain 3 view right ankle Comparison: None provided Findings: Bones intact. No dislocations. Soft tissue swelling. No ankle effusion. No radiopaque foreign body. IMPRESSION: No acute fracture. This document has been electronically signed by: Ernie Kincaid MD on 04/01/2025 23:44:31
--- NOTE | ~2025-04-01 | XR_ITS ---
CLINICAL HISTORY: fall pain 3 view right foot Comparison: None provided Findings: Bones intact. No dislocations. No ankle effusion. No radiopaque foreign body. IMPRESSION: 1. No acute findings. This document has been electronically signed by: Ernie Kincaid MD on 04/01/2025 23:44:38
[2025-04-01 22:20] VITALS: BP 135/62; PULSE 89; RESP 20; TEMP 36.6; O2SAT 97; BMI 43.7
[2025-04-02 02:58] VITALS: BP 137/84; PULSE 78; RESP 16; TEMP 36.8; O2SAT 98
--- OUTSIDE RECORDS SUMMARY | 2025-04-02 03:07 | XMS_ITS | Encounter Summary ---
Author Organization [facility] Address [address] [place] [id number] Phone Care Team Providers Care Superintendent Maintenance Airports Name Role Phone Deirdre Jimenes MD Primary Care Provider [phone]- [phone] Encounter Details Date Type Department Care Team (Late st Contact Info) Description 10/14/2016 Documentation [facility] [place] Family Medicine [address] [place] [address] Family Medicine, Physician [address], [place] [phone] Social History Tobacco Use Types Packs/Day Years [...] on filedocumented in this encounter Care Teams Superintendent Maintenance Airports Relationship Specialty Start Date End Date Deirdre Jimenes MD [address] [place] [address] [place] [address] PCP - General 04/02/17 09/10/22 documented as of this encounter
== END 2025-04-02 04:46 | disposition left against medical advice (07) ==
PROVIDERS: Emergency Provider Emergency Medicine
DX: M25.471 Effusion, right ankle (principal); S93.401A Sprain of unspecified ligament of right ankle, initial encounter; X58.XXXA Exposure to other specified factors, initial encounter; Y93.89 Activity, other specified; Y92.89 Other specified places as the place of occurrence of the external cause; Y99.8 Other external cause status; Z53.21 Procedure and treatment not carried out due to patient leaving prior to being seen by health care provider
CPT/HCPCS: 73610; 73630; 99281; 99283

== ENCOUNTER → 2025-04-01 22:26 | Outpatient (BNV) | payer MEDICARE, SELFPAY | PROVIDERS: Visit Provider Radiology Diagnostic Radiology | DX: M25.571 Pain in right ankle and joints of right foot (principal); M79.671 Pain in right foot; W19.XXXA Unspecified fall, initial encounter | CPT/HCPCS: 73610; 73630 ==

== ENCOUNTER 2025-05-01 04:06 | Emergency (ER) | payer BC, SELFPAY ==
--- NOTE | 2025-05-01 | ECG_ITS ---
Test Reason : CP Blood Pressure : */* mmHG Vent. Rate : 71 BPM Atrial Rate : 71 BPM P-R Int : 136 ms QRS Dur : 84 ms QT Int : 398 ms P-R-T Axes : 37 25 31 degrees QTcB Int : 432 ms Normal sinus rhythm with sinus arrhythmia Normal ECG When compared with ECG of 24-Nov-2021 14:49, No significant change was found Referred By: Generic ED Physician Electronically Signed By: MARLON GONZALES MD
--- NOTE | ~2025-05-01 | XR_ITS ---
CLINICAL HISTORY: sob 1 view chest Comparison: None Findings: Cardiac and mediastinal contours are normal. Mild interstitial prominence with questionable faint right lower lobe infiltrate. No effusion. No pneumothorax. No acute osseous finding. Impression: Mild interstitial prominence with questionable faint right lower lobe infiltrate. This document has been electronically signed by: Lamont Ragland MD on 05/01/2025 05:34:30
[2025-05-01 04:07] VITALS: BP 171/83; PULSE 68; RESP 20; TEMP 36.4; O2SAT 99
--- NOTE | 2025-05-01 04:43 | ED_ITS ---
HPI - SOB/Dyspnea General Chief Complaint: Dyspnea Stated Complaint: SoB Time Seen by Provider: 05/01/25 04:17 Source: patient Mode of arrival: ambulatory Limitations: no limitations History of Present Illness ED Provider: Dr. Kacy Sales HPI Narrative: 24-year-old female with no significant past medical history presenting with continued shortness of breath, productive cough of clear sputum, left-sided chest pain ongoing for the last 3 weeks or so. Admits that she has been seen at the urgent care and diagnosed with bronchitis. Was started on antibiotics and finished the course yesterday. Admits that she has had continued shortness of breath though with some associated chest tightness, today the pain localized to the left side. She denies passing out, changes in sputum production, nausea, vomiting, urinary complaints. Last menstrual cycle was 3 weeks ago. Does admit to some diarrhea. No one else is sick at home. Related Data Previous Rx's ?Medication ?Instructions ?Recorded tirzepatide (weight loss) 2.5 2.5 mg (0.5 mL) subcut Q WEEK #2 mL 03/26/25 mg/0.5 mL subcutaneous pen injector (Zepbound) codeine 10 mg-guaifenesin 100 mg/5 5 ml PO Q6H PRN cou gh #118 mL 05/01/25 mL oral liquid (G Tussin AC) Allergies Allergy/AdvReac Type Severity Reaction Status Date / Time No Known Allergies Allergy Verified 05/01/25 04:11 Review of Systems Review of Systems: As per HPI, full review of systems performed and negative but for the above mentioned pertinent positives and negatives. [facility] Family History Family History Mother Clotting disorder Other Lupus (systemic lupus erythematosus) Social History Social History Housing: House Patient Tobacco Use Status: Never used Tobacco Smoked in Last 30 Days: No e-Cigarette/Vaping Use: Never Used Use of substances other than those prescribed or required for medical reasons: No Advance Directives: No Advance Directives Information Provided: Yes Do you have a plan to hurt others: No Plan Patient : No service: No Current occupational status: employed Cognitive needs: No Hearing needs: No Vision needs: No Physical Exam Exam: Exam: GENERAL: Ill-Appearing, appears uncomfortable. SKIN: Normal skin color for ethnicity, warm, dry, no rashes noted. HEENT: Normocephalic, atraumatic, no stridor, dry mucous membranes, dentition intact, EOMI, PERRLA. NECK: Soft, supple, full ROM, midline structures nontender, no step-offs, no deformities, no lymphadenopathy. CHEST: Heart regular tachycardia, no murmurs, symmetric chest rise and fall. PULMONARY: Clear to auscultation bilaterally, diminished at the bases, occasional bronchospastic cough, no wheezes/rhales/rhonchi. ABDOMINAL: Soft, nondistended, nontender, positive bowel sounds in all quadrants. : Deferred. MUSCULOSKELETAL: Normal tone, full range of motion, no deformities, no peripheral edema. NEURO: Alert and oriented x3, CN II through XII intact, equal strength and sensation bilateral upper and lower extremities, no focal neurologic deficits. PSYCHIATRIC: Flat affect, fluid speech, good eye contact and appropriate demeanor. Vital Signs: Vital Signs: Last Vital Signs Temp 98.6 F 05/01/25 05:37 Pulse 79 05/01/25 05:37 Resp 16 05/01/25 05:37 BP 134/77 05/01/25 05:37 Pulse Ox 98 05/01/25 05:37 O2 Del Method Room Air 05/01/25 05:37 BMI result Body Mass Index 0.4 Medications Administered Discontinued Medications Generic Name Dose Route Start Last Admin Trade Name Freq PRN Reason Stop Dose Admin Albuterol Sulfate 2.5 mg/ 0 mg 05/01/25 04:55 05/01/25 04:56 Albuterol/Ipratropium 3 ml INHALE 05/01/25 04:56 1 dose ONCE ONE Administration Ketorolac Tromethamine 30 mg 05/01/25 04:42 05/01/25 05:14 Ketorolac Tromethamine 30 Mg/Ml Vial IM 05/01/25 04:43 30 mg ONCE ONE Administration Medical Decision Making Medical Decision Making [facility] Narrative: Patient presents today with a chief complaint of chest pain. Differential diagnosis includes, but is not limited to, acute coronary syndrome, musculoskeletal pain, pneumothorax, GERD, pleurisy, pulmonary embolism, dissection, among others. I will order EKG, chest x-ray, viral panel swabs. Patient has no fever today. Her work of breathing is normal. She does have a slight bronchospastic cough which we will treat with bronchodilators. EKG is nonischemic. Differential Diagnosis Differential Diagnoses: The differential diagnosis associated with the presentation includes (As above) Admission/Observation Consideration of admission/observation: Escalation of care including admissi on/observation considered Lab Data MDM Lab Attestation statement: I reviewed the patient's lab results. Labs: Lab Results 05/01/25 Range/Units 04:31 Influenza Type A (PCR) NEGATIVE (Negative) Influenza Type B (PCR) NEGATIVE (Negative) RSV RNA Qual (PCR) NEGATIVE (Negative) SARS-CoV-2 RNA (RT-PCR) NEGATIVE (Negative) Independent Interpretation I performed an independent interpretation of an: EKG Interpretation: My independent interpretation of the ECG reveals normal sinus rhythm with rate of 71, normal axis, normal intervals, no ST elevations or depressions to suggest ischemic changes, relatively unchanged from previous on 11/24/2021. Radiology Impression Discussion of test interpretation with radiology: I have reviewed the radiologist's reading. Prescription Management I considered prescription management with: Pain Medication and Antibiotic Discharge Plan Discharge Clinical Impression: Acute viral bronchitis Patient Disposition: Home, Self-Care Instructions: Acute Bronchitis (ED) Additional Instructions: Return to the emergency department with any new or worsening symptoms including: Fevers greater than 100 degrees, changes in your sputum production, worsening chest pain or difficulty breathing, any new symptom that concerns you. Follow up with your primary care doctor as soon as possible. Use Tussin AC as needed for severe coughing but do not take this medication if you are going to drive as it can make you drowsy. Prescriptions: New codeine-guaifenesin [G Tussin AC] 10-100 mg/5 mL liquid 5 ml PO Q6H PRN (Reason: cough) Qty: 118 0RF No Action Zepbound 2.5 mg/0.5 mL pen injector 2.5 mg subcut QWEEK Qty: 2 0RF Rx Instructions: for 4 weeks Print Language: Pashto
--- OUTSIDE RECORDS SUMMARY | 2025-05-01 04:53 | XMS_ITS | Encounter Summary ---
Author Organization [facility] Address [address] [place] [address] Phone Care Team Providers Care Senior It Security Analyst Name Role Phone Deirdre Jimenes MD Primary Care Provider [phone]- [phone] Encounter Details Date Type Department Care Team (Late st Contact Info) Description 12/29/2010 Documentation [facility] [place] Family Medicine [address] [place] [address] Family Medicine, Physician [address] [place], [place] [phone] Social History Tobacco Use Types Packs/Day Years [...] on filedocumented in this encounter Care Teams Senior It Security Analyst Relationship Specialty Start Date End Date Deirdre Jimenes MD [address] [place] [address] [place] [address] PCP - General 04/02/17 09/10/22 documented as of this encounter
--- OUTSIDE RECORDS SUMMARY | 2025-05-01 04:53 | XMS_ITS | Encounter Summary ---
Author Organization [facility] Address [address] [place] [address] Phone Care Team Providers Care Communication Signals Intelligence Name Role Phone Deirdre Jimenes MD Primary Care Provider [phone]- [phone] Encounter Details Date Type Department Care Team (Late st Contact Info) Description 04/08/2017 Conversion Encounter [facility] [place] [place] [address] [place] [address] Social History Tobacco Use Types Packs/Day Years Used Date Smoking Tobacco: Never Comments:Never smoker Comments Unknown Sex and Gender Information Value Date Recorded Sex Assigned at Not on file Legal Sex Female 5:11 PM EDT Gender Identity Not on file Sexual Orientation Not on file documented as of this encounter Plan of Treatment Not on file documented as of this encounter Visit Diagnoses Not on filedocumented in this encounter Care Teams Communication Signals Intelligence Relationship Specialty Start Date End Date Deirdre Jimenes MD [address] [place] [address] PCP - General 04/02/17 09/10/22 documented as of this encounter
--- OUTSIDE RECORDS SUMMARY | 2025-05-01 04:53 | XMS_ITS | Encounter Summary ---
Author Organization [facility] Address [address] [place] [address] Phone Care Team Providers Care Financial Data Analyst Name Role Phone Deirdre Jimenes MD Primary Care Provider [phone]- [phone] Encounter Details Date Type Department Care Team (Late st Contact Info) Description 01/30/2014 Documentation [facility] [address] [place] [address] Family Medicine, Physician [address], [place] [phone] Social History Tobacco Use Types Packs/Day Years [...] on filedocumented in this encounter Care Teams Financial Data Analyst Relationship Specialty Start Date End Date Deirdre Jimenes MD [address] [place] [address] [place] [address] PCP - General 04/02/17 09/10/22 documented as of this encounter
--- OUTSIDE RECORDS SUMMARY | 2025-05-01 04:53 | XMS_ITS | Clinical Summary ---
Author Organization [facility] Address [address] [place] [address] Phone Care Team Providers Care Medical Equipment Technician Name Role Phone Unavailable Primary Care Provider Unavailabl e Allergies No known active allergies Medications No known medications Active Problems Problem Noted Date Diagnosed Date Personal history of COVID-19 08/19/2020 Overview (12/18/2020): 08/13/20, here for appt November 2020 and had positive 14 point screen. Sent for EKG. Family history of bleeding or clotting disorder 02/21/2020 Overview (01/08/2021): Referred to [facility] for further evaluation. Waiting for Mom's specific diagnosis. 01/10 Pt still not sure. Anxiety 03/28/2018 Overview (02/21/2020): Therapist, Ann Hernandez, since 2018 - much improved Resolved Problems Problem Noted Date Diagnosed Date Resolved Date Personal history of COVID-19 12/18/2020 12/18/2020 Immunizations Immunization Administration Dates Next Due DTaP 5 10/09/2003, 1,04/05/2000,02/02,1999 HPV, Quadrivalent 06/17/2012,02/16/2012,12/14/19 12 Hep A, ped/adol 01/01/2015,12/20/2013 Hep B, ped/adol 09/07/2019, 9,03/06/2019,07/06,01/22/2000,1999 Hib (PRP-T) 10/09/2003, 1,04/05/2000,02/02,1999 IPV 10/09/2003, 2,02/03/2000,12/01 Influenza, injectable, quadr ivalent, preservative free 06/23/2021 MMR 10/09/2003,10/26/2000 Meningococcal B Trumenba 08/29/2020,02/21/2020 Meningococcal Conj (Menactra) MCV4P 02/15/2017,0 12/14/2011 Pneumococcal Conjugate 10/26/2000,07/06/2000, Tdap 12/14/2011 Varicella 12/14/2011,02/01/2001 Family History Medical History Relation Name Comments Diabetes Other Family hx Hyperlipidemia Other Family hx Hypertension Other Family hx Seizures Other Family hx Relation Name Status Comments Father Alive Half-Brother Alive Half-Sister Alive Mother Asnelly Evans Alive Mother: Blood clots Other Family hx Sister 1 Kairelys Alive Sister 2 Alive Social History Tobacco Use Types Packs/Day Years Used Date Smoking Tobacco: Never Smokeless Tobacco: Never Tobacco Cessation:Counseling Given: Yes Comments:Never smoker Alcohol Use Standard Drinks/Week Comments No 0 (1 standard drink = 0.6 oz pur e alcohol) Hunger/Food Answer Date Recorded In the last 12 months, did y ou or your family ever eat less than you felt you should because there wasn't enough money for food? No 01/08/2021 Stable Housing Answer Date Recorded Are you worried that in the next 2 months you may not have stable housing? No 01/08/2021 Transportation Concerns Answer Date Rec orded In the last 12 months, have you or your family ever had to go without healthcare because you didn't have a way to get there? No 01/08/2021 Hazards in Home Answer Date Recorded Think about the place you li ve. Do you have problems with any of the following? Pests (mice or roaches), mold, no/not working smoke detectors, water leaks, no window guards. No 2020 Financing Utilities Answer Date Recorde d In the last 12 months, has t he electric, gas, oil, or water company threatened to shut off your services in your home? No 01/08/2021 Safety at Home Answer Date Recorded Are you or your family worried about feeling saf e in your home? No 01/08/2021 Outside Support Answer Date Recorded Do you feel that you need mo re support from other people or programs to help you care for yourself or your family? No 01/08/2021 Understanding Health Concerns Answer Da te Recorded Do you need help understandi ng your or your child's healthcare needs (diagnosis, medications, plan, etc.)? No 01/08/2021 Financing Health Concerns Answer Date R ecorded In the last 12 months, was t here a time when your child needed to see a doctor or get medications or supplies but could not because of cost? No 01/08/2021 Missing School or Work Answer Date Waldo rded Did you or your child miss s chool or work because of a health problem that could have been avoided? No 01/08/2021 Comments No Sex and Gender Information Value Date Recorded Sex Assigned at Not on file Legal Sex Female 5:11 PM EDT Gender Identity Not on file Sexual Orientation Not on file Last Filed Vital Signs Vital Sign Reading Time Taken Comments Blood Pressure 110/71 01/08/2021 1:20 PM EDT Pulse 88 01/08/2021 1:20 PM EDT Temperature 36.3 C (97.3 F) 01/08/2021 1:20 PM EDT Respiratory Rate - - Oxygen Saturation - - Inhaled Oxygen Concentration - - Weight 99.5 kg (219 lb 6.4 oz) 01/08/2021 1:20 P M EDT Height 152.4 cm (5') 01/08/2021 1:20 PM EDT Body Mass Index 42.85 01/08/2021 1:20 PM EDT Plan of Treatment Health Maintenance Due Date Last Done Comments DTaP,Tdap,and Td Vaccines (7 - Td or Tdap) 12/13/2021 12/14/2011, 10/09/2003, 04/05/2001, Additional history exists Influenza Vaccines (#1) 2025 06/23/2021 COVID-19 Vaccine (3 - 2024-2 6 season) 2025 05/21/2021, 04/21/2021 Pneumococcal Vaccine Completed 10/26/2000, 07/06/2000, 04/05/2000 HIB Vaccines Completed 10/09/2003, 01/21, 04/05/2000, Additional history exists IPV Vaccines Completed 10/09/2003, 11/21, 02/03/2000, Additional history exists MMR Vaccines Completed 10/09/2003, 10/26/2000 Varicella Vaccines Completed 12/14/2011, 02/01/2001 HPV Vaccines Completed 06/17/2012, 01/22, 12/14/2011 Hepatitis A Vaccines Completed 01/01/2015, 12/21/19 14 Meningococcal Vaccine Completed 02/15/2017, 012 Men B Vaccine Completed 08/29/2020, 02/21/2020 Procedures * Due to [facility] law, this organization might not be sharing sensitive test results. Procedure Name Priority Date/Time Associated Diagnosis Comments CHLAMYDIA AND GONORRHEA, AMPLIFIED Routine 01/08/2021 1:36 PM EDT Screening examination for bacterial and spirochetal disease from Last 3 Months or Most Recently Relevant to Health Maintenance Results * Due to [facility] law, this organization might not be sharing sensitive test results. * Chlamydia and Gonorrhoea, Amplified (01/08/2021 1:36 PM EDT) Chlamydia Trachomatis, DNA Probe NEGATIVE (NEG) [facility] Comment: No Chlamydia Trachomatis RNA detected in this patient's sample (REFERENCE RANGE/NORMAL VALUE: NOT DETECTED) Note: This test uses plater apprentice- mediated amplification method to detect rRNA from C. Trachomatis URINE GC AMP PROBE NEGATIVE (NEG) [facility] Comment: No Neisseria Gonorrhoeae RNA detected in this patient's sample (REFERENCE RANGE/NORMAL VALUE: NOT DETECTED) NOTE: This test uses plater apprentice-mediated amplification method to detect rRNA from N.Gonorrhoeae. A negative result does not preclude infection. In the case of a negative urine result, testing of an endocervical(female) or urethral (male) specimen is recommended if there is high clinical suspicion of infection. Due to very high sensitivity of Nucleic Acid Amplification Test, false positive results may occur. Therefore, specimen handling is extremely important. In patients in whom the disease is unlikely, additional sample for testing should be considered after an initial positive result. The performance characteristics of this test have not been evaluated in children. The Aptima Combo2 assay is not intended for the evaluation of suspected sexual abuse or for other medico-legal indications. The ordering provider should assess if the patient had consensual sex without risk of sexual abuse. Consult the [facility] if needed. Contact phone number . Therapeutic failure or success cannot be determined with the Aptima Combo2 assay since nucleic acid may persist following appropriate antimicrobial therapy. The Centers for Disease Control and Prevention (CDC) recommends confirmatory retesting using culture or a different nucleic acid amplification test when positive results occur, if indicated. Testing performed or reported by [facility], a Service of [facility], [address] [place] [address] Gunnar Antonio MD, Making Machine Catcher Urine 01/08/2021 1:36 PM EDT 01/08/2021 8:06 PM EDT us Deirdre Jimenes MD LAB MICROBIOLOGY - GENERAL ORDERABLES Final Result [facility] from Last 3 Months or Most Recently Relevant to Health Maintenance
--- OUTSIDE RECORDS SUMMARY | 2025-05-01 04:53 | XMS_ITS | Encounter Summary ---
Author Organization [facility] Address [address] [place] [phone] Phone Care Team Providers Care Manager Card Name Role Phone Deirdre Jimenes MD Primary Care Provider [phone]- [phone] Encounter Details Date Type Department Care Team (Late st Contact Info) Description 10/14/2016 Documentation [facility] [place] [address] [place] [address] Family Medicine, Physician [address], [place] [phone] Social History Tobacco Use Types Packs/Day Years [...] on filedocumented in this encounter Care Teams Manager Card Relationship Specialty Start Date End Date Deirdre Jimenes MD [address] [place] [address] [place] [id number] PCP - General 04/02/17 09/10/22 documented as of this encounter
--- OUTSIDE RECORDS SUMMARY | 2025-05-01 04:53 | XMS_ITS | Encounter Summary ---
Author Organization [facility] Address [address] [place] [address] Phone Care Team Providers Care Lock And Dam Equipment Repairer Name Role Phone Deirdre Jimenes MD Primary Care Provider Encounter Details Date Type Department Care Team (Late st Contact Info) Description 12/10/2009 Documentation [facility] [place] Family Medicine [address] [place] [address] Family Medicine, Physician [address] [place], [place] [phone] Social History Tobacco Use Types Packs/Day Years [...] on filedocumented in this encounter Care Teams Lock And Dam Equipment Repairer Relationship Specialty Start Date End Date Deirdre Jimenes MD [address] [place] [address] [place] [address] PCP - General 04/02/17 09/10/22 documented as of this encounter
--- OUTSIDE RECORDS SUMMARY | 2025-05-01 04:53 | XMS_ITS | Encounter Summary ---
Author Organization [facility] Address [address] [place] [address] Phone Care Team Providers Care Business Planning Manager Name Role Phone Deirdre Jimenes MD Primary Care Provider +1- [phone] Encounter Details Date Type Department Care Team (Late st Contact Info) Description 10/15/2016 Documentation [facility] [place] [address] [place] [address] Family Medicine, Physician [address], [place] [phone] Social History Tobacco Use Types Packs/Day Years [...] on filedocumented in this encounter Care Teams Business Planning Manager Relationship Specialty Start Date End Date Deirdre Jimenes MD [address] [place] [address] [place] [address] PCP - General 04/02/17 09/10/22 documented as of this encounter
[2025-05-01] MEDS: Albuterol Sulfate 2.5 MG, Albuterol/Iprat 2.5/0.5MG 3 ML 3 ML INHALE (04:56)
[2025-05-01 05:09] VITALS: PULSE 96; RESP 20; O2SAT 96
[2025-05-01 05:13] LABS: Resp Syncy Virus RNA Qual PCR NEGATIVE (Negative); SARS COV2 PCR INHOUSE NEGATIVE (Negative)
[2025-05-01 05:37] VITALS: BP 134/77; PULSE 79; RESP 16; TEMP 37; O2SAT 98
[2025-05-01 07:24] VITALS: BP 133/77; PULSE 77; RESP 18; TEMP 36.6; O2SAT 98
== END 2025-05-01 07:25 | disposition home or self-care (01) ==
PROVIDERS: Emergency Provider Emergency Medicine
DX: J20.8 Acute bronchitis due to other specified organisms (principal); R06.02 Shortness of breath; R05.9 Cough, unspecified; R07.89 Other chest pain; I49.8 Other specified cardiac arrhythmias; Z03.818 Encounter for observation for suspected exposure to other biological agents ruled out
CPT/HCPCS: 71045; 87637; 93005; 94640; 96372; 99284; 99285; J1885

== ENCOUNTER → 2025-05-01 04:30 | Outpatient (BNV) | payer BC, SELFPAY | PROVIDERS: Emergency Provider Emergency Medicine; Visit Provider Internal Medicine Cardiovascular Disease | DX: R07.89 Other chest pain (principal) | CPT/HCPCS: 93010 ==

== ENCOUNTER → 2025-05-01 05:00 | Outpatient (BNV) | payer BC, SELFPAY | PROVIDERS: Emergency Provider Emergency Medicine; Visit Provider Radiology Vascular & Interventional Radiology | DX: R06.02 Shortness of breath (principal) | CPT/HCPCS: 71045 ==

== ENCOUNTER 2025-07-09 14:30 | Outpatient (AMB) | payer BC, SELFPAY ==
[2025-07-09 15:03] VITALS: BP 108/60; PULSE 95; TEMP 36.8; O2SAT 98; BMI 41.6
--- NOTE | 2025-07-09 15:03 | AM.OFFWIN_ITS ---
Intake Vital Signs 07/09/25 15:03 Height 5 ft 1 in Weight 220 lb BMI 41.6 BP 108/60 Blood Pressure Location Lt brachial Position Sitting Pulse 95 Pulse Source Pulse Oximeter Temp 98.2 F Temp Source Oral Pulse Oximetry (%) 98 Oxygen Delivery Method Room Air Intake Visit Reasons: EP-abdominal pain Intake Note: Patient presents c/o abdominal pain x2 weeks. Patient Tobacco Use Status: Never used Tobacco Allergies No Known Allergies Allergy (Verified 07/09/25 15:06) Medication List - Last Reconciled 07/09/25 by Merlyn Hollis NP famotidine 20 mg PO BEDTIME ondansetron 8 mg PO Q8H Do you need a note to return to daycare/school/sports/work: Yes HPI HPI Comments History of Present Illness Details 24 y/o female presents to the walk-in [facility] with persistent abdominal pain. Pain located in the right upper quadrant radiating to the epigastric area. Describes pain as sharp to dull, worsened with food intake. Reports poor appetite and nausea; denies vomiting. States she?s been eating very little due to fear of worsening pain. Bowel movements normal in frequency and consistency; denies diarrhea or constipation. Denies fevers, chills. Reports urinary frequency but denies urgency, dysuria, vaginal symptoms. Denies . [facility] Medical History (Updated 07/09/25 @ 15:51 by Merlyn Hollis NP) Right upper quadrant abdominal pain Family History Mother Clotting disorder Other Lupus (systemic lupus erythematosus) Social History Housing: House Patient Tobacco Use Status: Never used Tobacco e-Cigarette/Vaping Use: Never Used service: No Current occupational status: employed Cognitive needs: No Hearing needs: No Vision needs: No Review of Systems Const All systems reviewed & are unremarkable except as noted in HPI and below Physical Exam Vital Signs: Last Vital Signs Temp 98.2 F 07/09/25 15:03 Pulse 95 07/09/25 15:03 BP 108/60 07/09/25 15:03 Pulse Ox 98 07/09/25 15:03 Oxygen Delivery Method Room Air 07/09/25 15:03 BMI result Body Mass Index 41.6 Const General: no acute distress Nutritional Appearance: obese Orientation/consciousness: patient oriented x3 Resp Effort & Inspection: normal respiratory effort Cardio Heart sounds: S1 normal heart sound present and S2 normal heart sound present GI Other: Soft, non-distended. Tenderness to palpation in RUQ; Mild epigastric tenderness. No rebound or guarding. No CVA tenderness. Inspection: Yes Abdominal panniculus present Palpation (GI): Soft to palpation, not firm and No hepatosplenomegaly present Auscultation: Hypoactive bowel sounds present Rectal Exam - Female: deferred Neuro General: patient oriented x3, gait normal and moves all extremities Psych Speech and movement: Normal speech and movement present Results AMB Urinalysis, Automated UA Leukoctes 0 Bayron/uL Last Edit by Hannah Salinas CMA on 07/09/25 15:22 UA Nitrite Negative Last Edit by Hannah Salinas CMA on 07/09/25 15:22 UA Urobilinogen 0.2 mg/dL Last Edit by Hannah Salinas CMA on 07/09/25 15: 22 UA Protein 0 mg/dL Last Edit by Hannah Salinas CMA on 07/09/25 15:22 UA pH 6.0 Last Edit by Hannah Salinas CMA on 07/09/25 15:22 UA Blood 0 Chris/uL Last Edit by Hannah Salinas CMA on 07/09/25 15:22 UA Specific [place] 1.015 Last Edit by Hannah Salinas CMA on 07/09/25 15 :22 UA Ketone Negative Last Edit by Hannah Salinas CMA on 07/09/25 15:22 UA Bilirubin 0 mg/dL Last Edit by Hannah Salinas CMA on 07/09/25 15:22 UA Glucose 0 mg/dL Last Edit by Hannah Salinas CMA on 07/09/25 15:22 Results Reviewed Results Reviewed: Laboratory Last Values Urine pH (Auto) 6.0 07/09/25 15:20 Specific [place] (Auto) 1.015 07/09/25 15:20 Urine Protein (Auto) 0 mg/dL 07/09/25 15:20 Glucose (UA)(Auto) 0 mg/dL 07/09/25 15:20 Urine Ketones (Auto) Negative 07/09/25 15:20 Urine Blood (Auto) 0 Chris/uL 07/09/25 15:20 Urine Nitrite (Auto) Negative 07/09/25 15:20 Urine Bilirubin (Auto) 0 mg/dL 07/09/25 15:20 Urine Urobilinogen (Auto) 0.2 mg/dL 07/09/25 15:20 Leukocyte Esterase (Auto) 0 Bayron/uL 07/09/25 15:20 Assessment & Plan Assessment & Plan (1) Right upper quadrant abdominal pain: Code(s): R10.11 - Right upper quadrant pain Plan: RUQ abdominal pain, food-triggered ? concern for biliary etiology (cholelithiasis vs biliary colic; consider cholecystitis. Differential: Gallstones vs Gastritis vs PUD vs GERD vs hepatic Steatosis vs p ancreatitis less likely given location and symptoms. Urinary frequency without dysuria: Urinalysis negative. ?T2DM Pt to RTC for Blood work ordered by PCP. Ordered CT Abdomen to evaluate gallbladder, biliary tract snd other Organs. Start dietary modifications: low-fat diet until workup completed. Symptomatic management: Ondansetron PRN for nausea; Famotidine at Bedtime. Orders: Orders AMB Urinalysis Automated Today Z13.9 - Encounter for screening, unspecified CT abdomen wo IV con Today R10.11 - Right upper quadrant pain Medications: New famotidine 20 mg PO BEDTIME 30 tabs 0RF R10.11 - Right upper quadrant pain ondansetron 8 mg PO Q8H 20 tabs 0RF R10.11 - Right upper quadrant pain Coding Level of Care Code Est Pt Level 4 (69216) Diagnoses Right upper quadrant abdominal pain R10.11 Time Spent (min) 20
== END 2025-07-09 15:47 | disposition home or self-care (01) ==
PROVIDERS: Visit Provider Nurse Practitioner Family
DX: Z13.9 Encounter for screening, unspecified (principal); R10.11 Right upper quadrant pain

== ENCOUNTER → 2025-07-09 14:30 | Outpatient (BNVA) | payer BC, SELFPAY | PROVIDERS: Visit Provider Nurse Practitioner Family | DX: R10.11 Right upper quadrant pain (principal) | CPT/HCPCS: 81003 ==

== ENCOUNTER 2025-07-11 16:50 | Outpatient (REF) | payer BC, SELFPAY ==
--- OUTSIDE RECORDS SUMMARY | 2025-07-12 04:57 | XMS_ITS | Encounter Summary ---
Author Organization [facility] Address [address] [place] [address] Phone Care Team Providers Care Senior Manager Mmcoe Name Role Phone Deirdre Jimenes MD Primary Care Provider [phone]- [phone] Encounter Details Date Type Department Care Team (Late st Contact Info) Description 04/08/2017 Conversion Encounter [facility] [place] [address] [place] [address] Social History Tobacco Use Types Packs/Day Years [...] filedocumented in this encounter Care Teams Senior Manager Mmcoe Relationship Specialty Start Date End Date Deirdre Jimenes MD [address] [place] [address] PCP - General 04/02/17 09/10/22 documented as of this encounter
--- OUTSIDE RECORDS SUMMARY | 2025-07-12 04:57 | XMS_ITS | Encounter Summary ---
Author Organization [facility] Address [address] [place] [phone] Phone Care Team Providers Care Product Planner Name Role Phone Deirdre Jimenes MD Primary Care Provider [phone]- [phone] Encounter Details Date Type Department Care Team (Late st Contact Info) Description 10/14/2016 Documentation [facility] [place] Family Medicine [address] [place] [address] Family Medicine, Physician [address], [place] [phone] Social History Tobacco Use Types Packs/Day Years [...] on filedocumented in this encounter Care Teams Product Planner Relationship Specialty Start Date End Date Deirdre Jimenes MD [address] [place] [address] [place] [address] PCP - General 04/02/17 09/10/22 documented as of this encounter
--- OUTSIDE RECORDS SUMMARY | 2025-07-12 04:57 | XMS_ITS | Encounter Summary ---
Author Organization [facility] Address [address] [place] [address] Phone Care Team Providers Care Button Broacher Name Role Phone Deirdre Jimenes MD Primary Care Provider Encounter Details Date Type Department Care Team (Late st Contact Info) Description 12/10/2009 Documentation [facility] [place] Family Medicine [address] [place] [address] Family Medicine, Physician [address], [place] [phone] Social History Tobacco Use Types Packs/Day Years [...] on filedocumented in this encounter Care Teams Button Broacher Relationship Specialty Start Date End Date Deirdre Jimenes MD [address] [place] [address] [place] [address] PCP - General 04/02/17 09/10/22 documented as of this encounter
--- OUTSIDE RECORDS SUMMARY | 2025-07-12 04:57 | XMS_ITS | Clinical Summary ---
Author Organization [facility] Address [address] [place] [phone] Phone Care Team Providers Care Director Of Food And Beverage Services Name Role Phone Unavailable Primary Care Provider Unavailabl e Allergies No known active allergies Medications No known medications Active Problems Problem Noted Date Diagnosed Date Personal history of COVID-19 08/19/2020 Overview (12/18/2020): 08/13/20, here for appt November 2020 and had positive 14 point screen. Sent for EKG. Family history of bleeding or clotting disorder 02/21/2020 Overview (01/08/2021): Referred to Film Reader for further evaluation. Waiting for Mom's specific [...] Completed 08/29/2020, 02/21/2020 Procedures * Due to [facility] law, this organization might not be sharing sensitive test results. Procedure Name Priority Date/Time Associated Diagnosis Comments CHLAMYDIA AND GONORRHEA, AMPLIFIED Routine 01/08/2021 1:36 PM EDT Screening examination for bacterial and spirochetal disease from Last 3 Months or Most Recently Relevant to Health Maintenance Results * Due to [facility] law, this organization might not be sharing sensitive test results. * Chlamydia and Gonorrhoea, Amplified (01/08/2021 1:36 PM EDT) Chlamydia Trachomatis, DNA Probe NEGATIVE (NEG) [facility] Comment: No Chlamydia Trachomatis RNA detected in this patient's sample (REFERENCE RANGE/NORMAL VALUE: NOT DETECTED) Note: This test uses paint grinder- mediated amplification method to detect rRNA from C. Trachomatis URINE GC AMP PROBE NEGATIVE (NEG) [facility] Comment: No Neisseria Gonorrhoeae RNA detected in this patient's sample (REFERENCE RANGE/NORMAL VALUE: NOT DETECTED) NOTE: This test uses paint grinder-mediated amplification method to detect rRNA from N.Gonorrhoeae. [...] without risk of sexual abuse. Consult the [facility] if needed. Contact phone number . Therapeutic failure or success cannot be determined with the Aptima Combo2 assay since nucleic acid may persist following appropriate antimicrobial therapy. The Centers for Disease Control and Prevention (CDC) recommends confirmatory retesting using culture or a different nucleic acid amplification test when positive results occur, if indicated. Testing performed or reported by [facility], a Service of [facility], [address] [place] [address] Gunnar Antonio MD, Non Destructive Evaluation Technician Urine 01/08/2021 1:36 PM EDT 01/08/2021 8:06 PM EDT us Deirdre Jimenes MD LAB MICROBIOLOGY - GENERAL ORDERABLES Final Result [facility] from Last 3 Months or Most Recently Relevant to Health Maintenance
--- OUTSIDE RECORDS SUMMARY | 2025-07-12 04:57 | XMS_ITS | Encounter Summary ---
Author Organization [facility] Address [address] [place] [address] Phone Care Team Providers Care Balance Truing Inspector Name Role Phone Deirdre Jimenes MD Primary Care Provider [phone]- [phone] Encounter Details Date Type Department Care Team (Late st Contact Info) Description 01/30/2014 Documentation [facility] [place] Family Medicine [address] [place] [address] Family Medicine, Physician [address], [place] [phone] Social History Tobacco Use Types Packs/Day Years [...] on filedocumented in this encounter Care Teams Balance Truing Inspector Relationship Specialty Start Date End Date Deirdre Jimenes MD [address] [place] [address] [place] [address] PCP - General 04/02/17 09/10/22 documented as of this encounter
--- OUTSIDE RECORDS SUMMARY | 2025-07-12 04:57 | XMS_ITS | Encounter Summary ---
Author Organization [facility] Address [address] [place] [address] Phone Care Team Providers Care Computer Engineer Name Role Phone Deirdre Jimenes MD Primary Care Provider [phone]- [phone] Encounter Details Date Type Department Care Team (Late st Contact Info) Description 12/29/2010 Documentation [facility] [address] [place] [address] Family Medicine, Physician [address], [place] [phone] Social History Tobacco Use Types Packs/Day Years [...] on filedocumented in this encounter Care Teams Computer Engineer Relationship Specialty Start Date End Date Deirdre Jimenes MD [address] [place] [address] [place] [address] PCP - General 04/02/17 09/10/22 documented as of this encounter
--- OUTSIDE RECORDS SUMMARY | 2025-07-12 04:57 | XMS_ITS | Encounter Summary ---
Author Organization [facility] Address [address] [place] [address] Phone Care Team Providers Care Principal Engineer Name Role Phone Deirdre Jimenes MD Primary Care Provider [phone]- [phone] Encounter Details Date Type Department Care Team (Late st Contact Info) Description 10/15/2016 Documentation [facility] Family Medicine [address] [place] [address] Family Medicine, Physician [address] [phone] Social History Tobacco Use Types Packs/Day Years [...] on filedocumented in this encounter Care Teams Principal Engineer Relationship Specialty Start Date End Date Deirdre Jimenes MD [address] [place] [address] [place] [address] PCP - General 04/02/17 09/10/22 documented as of this encounter
== END 2025-07-11 16:51 | disposition home or self-care (01) ==
LOC: HO.LAB 16:50
DX: Z13.1 Encounter for screening for diabetes mellitus (principal); R52 Pain, unspecified
CPT/HCPCS: 36415; 83036; 85652; 86140

== ENCOUNTER 2025-07-31 12:42 | Outpatient (REF) | payer BC, SELFPAY ==
--- NOTE | ~2025-07-31 | CT_ITS ---
EXAMINATION: CT ABDOMEN PELVIS WITH IV CONTRAST HISTORY: R10.11 - Right upper quadrant pain COMPARISON: There are no prior studies for available comparison. TECHNIQUE: CT scan of the abdomen and pelvis was performed following administration of 85 mL Omnipaque 350 using standard departmental protocol. Coronal and sagittal reformatted images were generated and reviewed. Oral contrast material was not administered at the request of the referring physician. This CT exam was performed with one or more of the following dose reduction techniques: automated exposure control, adjustment of the mA and/or kV according to patient size, use of iterative reconstruction technique. DLP: 826 mGy-cm FINDINGS: LOWER CHEST: The visualized lung bases are clear. There is no pleural effusion. CARDIOVASCULATURE: The heart is normal in size. There is no pericardial effusion. LIVER: The liver is normal in size and contour. No liver mass is identified. The hepatic and portal veins are patent. GALLBLADDER / BILE DUCTS: The gallbladder is unremarkable. There is no intra or extrahepatic biliary ductal dilatation. SPLEEN: The spleen is normal in size. No focal splenic lesion is identified. PANCREAS: The pancreas is unremarkable in appearance. ADRENAL GLANDS: Within normal limits. KIDNEYS/RETROPERITONEUM: No renal calculi are identified. There is no hydronephrosis. No renal masses are identified. LYMPH NODES: No abdominal or pelvic lymphadenopathy. VASCULATURE: The abdominal aorta is normal in caliber. MESENTERY/PERITONEUM: No free fluid. No masses. There is no free intraperitoneal gas. STOMACH: The stomach is collapsed, limiting evaluation. SMALL BOWEL: The small bowel is normal in caliber. COLON: There is a large amount of stool in the rectum. The remainder of the colon is unremarkable in appearance. APPENDIX: Normal. URINARY BLADDER/PELVIC ORGANS: The urinary bladder is unremarkable. There is a 2.4 cm left ovarian cyst versus follicle. The uterus and right ovary are unremarkable. BONES / SOFT TISSUES: No suspicious bony or soft tissue abnormalities. CT/CT abdomen pelvis w IV con IMPRESSION: Large amount of stool in the rectum. 2.4 cm left ovarian cyst versus follicle. Otherwise unremarkable contrast-enhanced CT of the abdomen and pelvis. Electronically signed by: Adam Eduardo MD 07/31/2025 02:24 PM [facility]
[2025-07-31] MEDS: iohexoL 350 MG/ML 100 ML INFUS..BTL 85 ML IV (14:17)
== END 2025-07-31 12:43 | disposition home or self-care (01) ==
LOC: HO.CT 12:42
PROVIDERS: Visit Provider Nurse Practitioner Family
DX: R10.11 Right upper quadrant pain (principal)
CPT/HCPCS: 74177; Q9967

== ENCOUNTER → 2025-07-31 12:43 | Outpatient (BNV) | payer BC, SELFPAY | PROVIDERS: Visit Provider Radiology Diagnostic Radiology | DX: R10.11 Right upper quadrant pain (principal) | CPT/HCPCS: 74177 ==